=== PATIENT | female | born 1950 | race Caucasian/White ===

== ENCOUNTER → 2024-06-11 08:53 | Outpatient (REF) | payer MEDICARE, SELFPAY | LOC: RAD 08:53 | PROVIDERS: ATTENDING PHYSICIAN Specialist | DX: Z96.653 Presence of artificial knee joint, bilateral (principal) | CPT/HCPCS: 78315; A9503 ==

== ENCOUNTER 2025-05-11 07:53 | Emergency (ER) | payer MEDICARE, BC, SELFPAY ==
[2025-05-11 07:57] VITALS: BP 190/99
[2025-05-11 08:00] VITALS: BP 190/99
[2025-05-11 08:02] VITALS: BMI 29.9
[2025-05-11] MEDS: DECADRON 10 MG PO (08:13)
--- NOTE | 2025-05-11 08:37 | ED.GENMED ---
History of Present Illness
General
Chief Complaint: Allergic Reaction
Time Seen by Provider: 05/11/25 08:01
History of Present Illness
History of Present Illness:
75-year-old female with history of hypertension presenting for concern of anaphylaxis. Patient reports prior to arrival she was walking her dog and was stung pain in her right hand. She reports anaphylaxis to bee stings in the past. She started
to feel very shaky so she gave herself an EpiPen. Prior to giving herself the EpiPen, denies any respiratory symptoms or feeling of throat closure. Denies rash or vomiting. She has never given herself an EpiPen in the past, however did have to
come to the ER in the past and received epi. She is continuing to feel shaky. Denies chest pain or difficulty breathing. Denies abdominal pain. Denies additional acute medical complaints
Past History
Past History
ED Past Medical History: Asthma and HTN
ED Past Surgical History: None
Social History
Tobacco: Non-smoker
Alcohol: Occasional
Personal:
Living: with family
Phy Exam
Physical Exam
Physical Exam:
General: Well-appearing, no clinical signs of dehydration, nontoxic and in no acute distress
HEENT: protecting airway
Neck: appears supple
CV: Normal heart rate, regular rhythm
Resp: No accessory muscle use, no increased work of breathing, lungs clear to auscultation bilaterally
Abd: Soft and non-distended, no tenderness to palpation
Extremities: No deformities, no swelling. Small area of erythema at the right medial wrist. No significant swelling.
Neuro: alert, no focal neurologic deficit
: deferred
Rectal: deferred
Psych: Normal affect
Skin: Intact
Course
Orders/Labs/Results
Orders:
Orders
05/11/25
Electrocardiogram (*1) Stat
Comment: DONE
05/11/25 08:02
Dexamethasone Pf [Decadron] 10 mg PO NOW STA
Vital Signs
Initial and Last Documented VS:
Initial Vital Signs
BP
190/99
05/11/25 07:57
Last Documented Vital Signs
Temp Pulse Resp BP Pulse Ox
98.4 F 63 10 174/97 94
05/11/25 08:00 05/11/25 10:00 05/11/25 10:00 05/11/25 10:00 05/11/25 10:00
MDM/Problems Addressed
MDM/Problems Addressed:
75-year-old female with history of hypertension presenting after concern of anaphylaxis, status post EpiPen. Vital signs on arrival are significant for high blood pressure.
On exam, patient is tremulous, however no acute respiratory distress. No systemic rash. Patient speaking clearly without any oropharyngeal erythema or edema. No stridor. Given that patient received epi prior to arrival, will observe for the next
4 hours to ensure no rebound reaction. Will also administer dose Decadron.
11:50 -patient remains stable. Feel stable for discharge. Will send prescription for EpiPen. Return precautions discussed and patient verbalized understanding.
*Pulse Oximetry
SaO2: 97
Oxygen Mode of Delivery: Room air
Patient hypoxic: no
*Critical Care Note
Total Time (30-74mins, 75-104mins- exclusive of procedures): Not Applicable
ED Attending Note
-
Portions of this chart may have been created with voice recognition software.� Occasional wrong word or��sound alike� substitutions may have occurred due to the inherent limitations of voice recognition software.
Discharge Plan
Departure
Patient with high blood pressure during this ER visit?: Yes
Condition: Good
Instructions: Anaphylaxis - Discharge instructions, BLOOD PRESSURE
Prescriptions:
New
epinephrine 0.3 mg/0.3 mL auto-injector
0.3 ml IM ONCE Qty: 2 0RF
No Action
fluticasone propion-salmeterol [Advair Diskus] 1 DISK blister with device
1 puff inhalation DAILY
lisinopril 20 MG tablet
20 mg PO DAILY
famotidine 40 MG tablet
40 mg PO DAILY
omeprazole 40 MG capsule,delayed release(DR/EC)
40 mg PO DAILY
lorazepam 1 MG tablet
1 mg PO PRN PRN (Reason: anxiety)
fluticasone propionate 1 SPRAY spray,suspension
1 spray intranasal DAILY
rosuvastatin 5 MG tablet
5 mg PO DAILY
amlodipine 5 MG tablet
5 mg PO DAILY Qty: 30 0RF
Activity Restrictions/Additional Instructions:
You were seen in the emergency department for concern of allergic reaction
You were administered epinephrine prior to arrival with improvement of your symptoms. You had no further complications while in the emergency department.
Please follow-up closely with your primary care physician.
Return to the emergency department for any worsening of your symptoms, or any development of chest pain, difficulty breathing, abdominal pain with persistent vomiting and inability to tolerate food or liquid by mouth (concern for dehydration),
weakness, headache or confusion, fever greater than 100.4, or any additional symptoms that are concerning to you.
Thank you for choosing [facility].
Discharge Date and Time
Print Language: FRISIAN
[2025-05-11 09:00] VITALS: BP 163/75
[2025-05-11 10:00] VITALS: BP 174/97
[2025-05-11 11:00] VITALS: BP 176/85
== END 2025-05-11 12:09 | disposition home or self-care (01) ==
LOC: EMR 07:53
PROVIDERS: EMERGENCY PHYSICIAN Student in an Organized Health Care Education/Training Program
DX: T63.441A Toxic effect of venom of bees, accidental (unintentional), initial encounter (principal); Y93.K1 Activity, walking an animal; J45.909 Unspecified asthma, uncomplicated; I10 Essential (primary) hypertension
CPT/HCPCS: 99283; 93005